=== PATIENT | female | born 1995 | race African-American/Black ===

== ENCOUNTER 2020-07-17 19:37 | Emergency (ER) | payer MEDICAID ==
[~2020-07-17] VITALS: Ht 167.6 cm; Wt 72.0 kg
[2020-07-17 20:05] VITALS: BP 116/85
[2020-07-17] MEDS ORDERED: ONDANSETRON 4MG ODT PO STA (20:27)
[2020-07-17 21:24] LABS: CHLORIDE 109 mEq/L (98-107)
== END 2020-07-17 23:37 | disposition home or self-care (01) ==
LOC: ER 19:37
DX: B34.9 Viral infection, unspecified (principal); F17.200 Nicotine dependence, unspecified, uncomplicated
CPT/HCPCS: 36415; 71045; 80053; 87635; 93005; 99285; C9803